=== PATIENT | male | born 2005 | race Two or more races ===

== ENCOUNTER 2024-01-25 23:49 | Emergency (ER) | payer MEDICAID, SELFPAY ==
[2024-01-25 23:51] VITALS: BMI 30.4
[2024-01-26 01:48] VITALS: BP 143/94; PULSE 120; RESP 18; TEMP 38.8; O2SAT 97
--- NOTE | 2024-01-26 02:01 | PD.EDRME ---
Rapid Medical Screening Exam [facility] Arrival date/time: 01/25/24 23:49 18M with history of frequent skin infections/abscesses presents to ED with several days of L elbow skin pain and fevers/chills. Patient denies drug use. Chief Complaint: Skin/Abscess/Foreign Body Vital signs: Vital Signs Temperature 101.8 F H 01/26/24 01:48 Pulse Rate 120 H 01/26/24 01:48 Respiratory Rate 18 01/26/24 01:48 Blood Pressure 143/94 H 01/26/24 01:48 Pulse Oximetry (%) 97 01/26/24 01:48 Oxygen Delivery Method Room Air 01/26/24 01:48
[2024-01-26 02:22] LABS: Lactate (Lactic Acid) 1.5 mMol/L (0.4-2.0)
[2024-01-26 02:28] LABS: Basophils % (Auto) 0 % (0-2.5); Eosinophils % (Auto) 0 % (0-10); Hemoglobin 15.7 g/dL (13.5-16.0); Immature Granulocytes % (Auto) 0 % (0-0); Immature Granulocytes Auto 0.04 Thou/mm3 (0.00-0.00); Lymphocytes % (Auto) 14 % (10-50); Mean Corpuscular HGB Conc 34.9 g/dl (31.0-37.0); Mean Corpuscular Hemoglobin 30.4 pg (25.0-35.0); Mean Corpuscular Volume 87 fL (80-100); Monocytes # (Auto) 1.6 Thou/mm3 (0.0-0.8); Monocytes % (Auto) 11 % (0-12); Neutrophils # (Auto) 11.1 Thou/mm3 (1.8-7.7); Neutrophils % (Auto) 75 % (37-80); Nucleated Red Blood Cell % 0 /100 WBC (0); Platelet Count 243 Thou/mm3 (140-440); Red Blood Count 5.16 Miln/mm3 (4.50-5.90); White Blood Count 14.8 Thou/mm3 (4.5-11.0)
[2024-01-26 02:42] VITALS: TEMP 38.8
[2024-01-26] MEDS: ACETAMINOPHEN 500 MG TABLET 1000 MG PO (02:42)
[2024-01-26 02:49] LABS: Alanine Aminotransferase 35 U/L (10-49); Albumin, Serum 5.3 gm/dL (3.5-5.0); Albumin/Globulin Ratio 1.9 (1.2-2.2); Alkaline Phosphatase 87 U/L (46-116); Anion Gap 7 (7-16); Aspartate Amino Transferase 13 U/L (0-34); BUN/Creatinine Ratio 11 Ratio (12-20); Bilirubin,Total 0.7 mg/dL (0.3-1.2); Blood Urea Nitrogen 10 mg/dL (9-23); Calcium 10.3 mg/dL (8.3-10.6); Calcium (Corrected) 10.3 mg/dL (8.5-10.1); Carbon Dioxide 29.4 mMol/L (20.0-31.0); Chloride 103 mMol/L (98-107); Creatinine (Component) 0.9 mg/dL (0.6-1.3); Estimated Creatinine Clearance 144.4 mL/min (>60); Globulin 2.8 gm/dL (2.3-3.5); Glucose 112 mg/dL (74-106); Osmolality,Calculated 277 (275-295); Potassium 3.7 mMol/L (3.4-5.1); Sodium 139 mMol/L (136-145); Total Protein 8.1 gm/dL (5.7-8.2); eGFR > 60 See Note
[2024-01-26 02:52] LABS: Procalcitonin 0.04 ng/ml (0.0-0.49)
[2024-01-26 05:00] VITALS: BP 125/83; PULSE 90; RESP 18; TEMP 37.1; O2SAT 97
--- NOTE | 2024-01-26 06:29 | PD.EDSKIN ---
ED Skin Abcess FB-RME/HPI General Chief complaint: Skin/Abscess/Foreign Body Stated complaint: PIMPLE, REDNESS TO ELBOW, ARM IS TINGLING Time Seen by Provider: 01/26/24 06:09 Source: patient Arrival date/time: 01/25/24 23:49 18-year-old male with past medical history of previous skin infections and abscess presents emergency department complaining of left elbow lesion that is draining with pain and fever. Patient reports similar episode and popped abscess on his own and resolved. Patient denies any IV drug use. Patient denies any history of diabetes. Mode of arrival: ambulatory Limitations: no limitations RME / HPI RME / HPI narrative: 01/25/24 23:49 18M with history of frequent skin infections/abscesses presents to ED with several days of L elbow skin pain and fevers/chills. Patient denies drug use. Related Data Previous Rx's ?Medication ?Instructions ?Recorded acetaminophen 500 mg tablet 1,000 mg (2 x 500 mg) PO TID PRN 04/17/21 (Tylenol Extra Strength) fever or pain #30 tabs albuterol sulfate 90 mcg/actuation 1 puff inhalation Q6H PRN 04/17/21 aerosol inhaler (Ventolin HFA) shortness of breath or wheezing #6.7 grams clindamycin HCl 150 mg capsule 450 mg (3 x 150 mg) PO TID 7 days 01/26/24 #63 caps Allergies Allergy/AdvReac Type Severity Reaction Status Date / Time cashew nut Allergy Severe Difficulty Verified 01/25/24 23:50 Breathing walnut Allergy Severe Difficulty Verified 01/25/24 23:50 Breathing Review of Systems Review of Systems Systems Reviewed: All systems reviewed, normal except as documented Constitutional Constitutional: Reports system reviewed and no additional complaints, except as documented, Denies body ache(s), Denies chills and Reports fever(s) Eyes Eyes: Reports system reviewed and no additional complaints, except as documented and Denies change in vision ENT Ears, Nose, Mouth, and Throat: Reports system reviewed and no additional complaints, except as documented, Denies disequilibrium, Denies dizziness, Denies sore throat and Denies vertigo Cardiovascular Cardiovascular: Reports system reviewed and no additional complaints, except as documented, Denies chest pain and Denies dyspnea Respiratory Respiratory: Reports system reviewed and no additional complaints, except as documented, Denies chest congestion, Denies cough and Denies dyspnea Gastrointestinal Gastrointestinal: Reports system reviewed and no additional complaints, except as documented, Denies abdominal pain, Denies nausea and Denies vomiting Musculoskeletal Musculoskeletal: Reports system reviewed and no additional complaints, except as documented, Denies abnormal gait and Denies arthralgias Integumentary/Breasts Skin/Breast: Reports system reviewed and no additional complaints, except as documented, Reports erythema, Reports furuncle, Reports lesions, Denies rash, Reports skin swelling and Denies wounds Neurologic Neurologic: Reports system reviewed and no additional complaints, except as documented, Denies abnormal gait, Denies disequilibrium, Denies dizziness and Denies vertigo Past Medical History Past Medical History CARDIAC: Negative Congestive Heart Failure RESPIRATORY: Positive Asthma; Negative Chronic Obstructive Pulmonary Disease (COPD) GASTROINTESTINAL: Positive Gastrointestinal Disorders GENITOURINARY: Negative Renal Disease ENDOCRINE: Negative Diabetes Mellitus Type 1 or Diabetes Mellitus Type 2 Social History SMOKING STATUS: Never smoker ED Exam General Limitations: Present no limitations General appearance: Present alert and in no apparent distress Head Head exam: Present atraumatic Eye Eye exam: Present normal appearance, PERRL and EOMI ENT ENT exam: Present normal exam, normal oropharynx and mucous membranes moist Neck Neck exam: Present normal inspection, full ROM and trachea midline Chest Chest inspection: Present normal inspection and symmetric chest wall rise Respiratory Respiratory exam: Present normal lung sounds bilaterally Cardiovascular Cardiovascular exam: Present regular rate, normal rhythm and normal heart sounds Abdominal Exam Abdominal exam: Present soft and normal bowel sounds Extremities Exam Extremities exam: Present normal inspection and full ROM Expanded Upper Extremity Exam Elbow exam: Present full ROM (Left elbow), swelling (Mild edema) and erythema Vascular exam: Normal capillary refill Back Exam Back exam: Present normal inspection and full ROM Neurological Exam Neurological exam: Present alert, oriented X3 and CN II-XII intact Psychiatric Psychiatric exam: Present normal affect and normal mood Skin Skin exam: Present warm, dry and erythema Expanded Skin Exam Type of lesion: Present abscess Distribution: Present LUE Description: Present tenderness, erythematous, swelling, discharge and indurated Body image: 1. Draining abscess below left elbow. Course Quality Measures none Orders Category Date Time Status Incision and Drainage Set Up X1 Care 01/26/24 02:01 Completed CBC Stat Lab 01/26/24 02:09 Completed CMP [Comprehensive Metabolic Panel] Stat Lab 01/26/24 02:09 Completed Lactate (Lactic Acid) Stat Lab 01/26/24 02:09 Completed Procalcitonin Stat Lab 01/26/24 02:09 Completed Acetaminophen Tab [Tylenol ES Tab] Med 01/26/24 02:00 Discontinued 1,000 mg PO X1 ONE cefTRIAXone [Rocephin] 1,000 mg Med 01/26/24 06:30 Discontinued Lidocaine 1% 20 ml [Xylocaine 1% 20 ML] 2.1 ml IM X1 cefTRIAXone [Rocephin] 1,000 mg Med 01/26/24 06:34 Discontinued Lidocaine 1% 20 ml [Xylocaine 1% 20 ML] 2.1 ml IM X1 Vital Signs Vital signs: Vital Signs Temperature 101.8 F H 01/26/24 01:48 Pulse Rate 120 H 01/26/24 01:48 Respiratory Rate 18 01/26/24 01:48 Blood Pressure 143/94 H 01/26/24 01:48 Pulse Oximetry (%) 97 01/26/24 01:48 Oxygen Delivery Method Room Air 01/26/24 01:48 97% room air within normal limits Procedures -ED Abscess I/D Site: upper extremity Side (if applicable): left Sedation/analgesia: none Technique: other (Manual manipulation) Amount of fluid expressed (mL): 10 Irrigation: Yes Packing used?: none Skin / Abscess / Foreign Body MDM Narrative MDM Narrative:: 18-year-old male with past medical history of previous skin infections and abscess presents emergency department complaining of left elbow lesion that is draining with pain. Patient reports similar episode and popped abscess on his own and resolved. Patient denies any IV drug use. Patient's left elbow full active range of motion. Skin exam draining abscess/carbuncle below left elbow with small localized area of redness and induration. Expressed approximately 10 mL of purulent and sanguinous drainage from abscess with manual manipulation. Patient tolerated well. Abscess cleansed with normal saline. Dressing applied. Patient given IM Rocephin and discharged on clindamycin advised to return for evaluation this upcoming Sunday. patient appears nontoxic and hemodynamically stable. Patient leukocytosis 14,000, normal lactate, normal procalcitonin. Instructed to follow-up with primary care provider. Instructed to return sooner to the emergency department for any worsening symptoms or as needed. Patient data External records reviewed:: [facility] previous records Clinical information provided by:: patient Social determinants that could affect healthcare access:: none Patient has the following chronic illnesses:: See chart How is presenting disease/condition affected by chronic disease/condition?: exacerbated by Evaluation data The following diagnostics were reviewed and interpreted by me:: lab results Lab and/or radiology exams considered but not ordered:: Ordered Interpretation Summary: Interpreted by me Medications / Prescriptions Medications or Prescriptions considered but not ordered:: Ordered Medication administrations:: Medication Administration History Discontinued Medications Acetaminophen (Acetaminophen 500 Mg Tablet) 1,000 mg PO X1 ONE Stop: 01/26/24 02:01 Last Admin: 01/26/24 02:42 Dose: 1,000 mg Documented By: AYDEN Ceftriaxone Sodium 1,000 mg/ (Lidocaine HCl 2.1 ml) 0 mg IM X1 ONE Stop: 01/26/24 06:31 Last Admin: 01/26/24 06:52 Dose: Not Given Documented By: AYDEN Non-Admin Reason: Discontinued Ceftriaxone Sodium 1,000 mg/ (Lidocaine HCl 2.1 ml) 0 mg IM X1 ONE Stop: 01/26/24 06:35 Last Admin: 01/26/24 06:55 Dose: 1,000 mg Documented By: SIMBA Given Consultations Consultation(s) initiated? (list below): No Diagnosis Skin/Abscess Differential Diagnosis: abscess of skin or subcutaneous tissue, cellulitis and other (Septic elbow) Most likely diagnosis given after review of the tests above:: Abscess of left arm Admission Indicated Admission indicated?: not indicated Admission Request Was there a request for admission?: No Disposition Plan Disposition Plan: Discharge Discharge Attestation Discharge Attestation: The patient and all family members were given an opportunity to ask questions and understood the discharge instructions. Discharge instructions specifically effects, indications for sooner follow up or return to the emergency department, and the expected course of current diagnosis. Patient condition: Stable Discharge Plan Plan Patient Disposition: HOME (Self Care) Disposition Comment: Stable Prescriptions/Referrals Prescriptions/Med Rec: New clindamycin HCl 150 mg capsule 450 mg PO TID 7 Days Qty: 63 0RF No Action albuterol sulfate [Ventolin HFA] 90 mcg/actuation HFA aerosol inhaler 1 puff inhalation Q6H PRN (Reason: shortness of breath or wheezing) Qty: 6.7 0RF acetaminophen [Tylenol Extra Strength] 500 mg tablet 1,000 mg PO TID PRN (Reason: fever or pain) Qty: 30 0RF Problem List Clinical Impression: Abscess of arm, left Patient/Caregiver Discharge Instructions Discharge Activity: activity as tolerated Education Materials: ED Abscess, Incision And Drainage Additional Instructions: Keep dressing to abscess as it keeps draining. Take antibiotics as prescribed. Return to the emergency department on Sunday for reevaluation. Follow-up with primary care provider upon discharge. Return to emergency department sooner for any worsening symptoms or as needed. Print Language: Maori Stand Alone Forms: Lily Award Info., Patient Portal Info Letter Attestation Attestation The patient was seen by the midlevel practitioner. I, the co-signing physician, was present during the entire ER visit. While I did not physically examine the patient, I was available for consultation as needed.
[2024-01-26] MEDS: cefTRIAXone 1,000 MG, LIDOCAINE 1% 20 ML 2.1 ML IM (06:55)
== END 2024-01-26 07:15 | disposition home or self-care (01) ==
PROVIDERS: Physician Assistant; Emergency Provider Emergency Medicine; PCP Family Medicine
DX: L02.414 Cutaneous abscess of left upper limb (principal)
CPT/HCPCS: 10060; 36415; 80053; 83605; 84145; 85025; 96372; 99283; J0696; J3490; A9270

== ENCOUNTER 2024-01-28 18:50 | Emergency (ER) | payer MEDICAID, SELFPAY ==
[2024-01-28 18:50] VITALS: BMI 29.3
[2024-01-28 19:30] VITALS: BP 122/82; PULSE 97; RESP 18; TEMP 37.2; O2SAT 100
--- NOTE | 2024-01-28 19:32 | PD.EDSKIN ---
ED Skin Abcess FB-RME/HPI General Chief complaint: Skin/Abscess/Foreign Body Stated complaint: RECHECK ON ABSCESS Time Seen by Provider: 01/28/24 19:22 Source: patient Arrival date/time: 01/28/24 18:50 18-year-old male presents emergency department for reevaluation of left elbow abscess. Patient denies any fever, chills, nausea vomiting, cough, shortness of breath, or any other associated symptoms. Mode of arrival: ambulatory Limitations: no limitations Related Data Previous Rx's ?Medication ?Instructions ?Recorded acetaminophen 500 mg tablet 1,000 mg (2 x 500 mg) PO TID PRN 04/17/21 (Tylenol Extra Strength) fever or pain #30 tabs albuterol sulfate 90 mcg/actuation 1 puff inhalation Q6H PRN 04/17/21 aerosol inhaler (Ventolin HFA) shortness of breath or wheezing #6.7 grams clindamycin HCl 150 mg capsule 450 mg (3 x 150 mg) PO TID 7 days 01/26/24 #63 caps Allergies Allergy/AdvReac Type Severity Reaction Status Date / Time cashew nut Allergy Severe Difficulty Verified 01/28/24 18:52 Breathing walnut Allergy Severe Difficulty Verified 01/28/24 18:52 Breathing Review of Systems Review of Systems Systems Reviewed: All systems reviewed, normal except as documented Constitutional Constitutional: Reports system reviewed and no additional complaints, except as documented, Denies body ache(s), Denies chills and Denies fever(s) Eyes Eyes: Reports system reviewed and no additional complaints, except as documented and Denies change in vision ENT Ears, Nose, Mouth, and Throat: Reports system reviewed and no additional complaints, except as documented, Denies disequilibrium, Denies dizziness, Denies sore throat and Denies vertigo Cardiovascular Cardiovascular: Reports system reviewed and no additional complaints, except as documented, Denies chest pain and Denies dyspnea Respiratory Respiratory: Reports system reviewed and no additional complaints, except as documented, Denies chest congestion, Denies cough and Denies dyspnea Gastrointestinal Gastrointestinal: Reports system reviewed and no additional complaints, except as documented, Denies abdominal pain, Denies nausea and Denies vomiting Musculoskeletal Musculoskeletal: Reports system reviewed and no additional complaints, except as documented, Denies abnormal gait and Denies arthralgias Integumentary/Breasts Skin/Breast: Reports system reviewed and no additional complaints, except as documented, Reports erythema, Reports lesions (Left elbow abscess), Denies rash and Denies wounds Neurologic Neurologic: Reports system reviewed and no additional complaints, except as documented, Denies abnormal gait, Denies disequilibrium, Denies dizziness and Denies vertigo Past Medical History Past Medical History CARDIAC: Negative Congestive Heart Failure RESPIRATORY: Positive Asthma; Negative Chronic Obstructive Pulmonary Disease (COPD) GASTROINTESTINAL: Positive Gastrointestinal Disorders GENITOURINARY: Negative Renal Disease ENDOCRINE: Negative Diabetes Mellitus Type 1 or Diabetes Mellitus Type 2 Social History SMOKING STATUS: Never smoker ED Exam General Limitations: Present no limitations General appearance: Present alert and in no apparent distress Head Head exam: Present atraumatic Eye Eye exam: Present normal appearance, PERRL and EOMI ENT ENT exam: Present normal exam, normal oropharynx and mucous membranes moist Neck Neck exam: Present normal inspection, full ROM and trachea midline Chest Chest inspection: Present normal inspection and symmetric chest wall rise Respiratory Respiratory exam: Present normal lung sounds bilaterally Cardiovascular Cardiovascular exam: Present regular rate, normal rhythm and normal heart sounds Abdominal Exam Abdominal exam: Present soft and normal bowel sounds Extremities Exam Extremities exam: Present normal inspection and full ROM Expanded Upper Extremity Exam Elbow exam: Present full ROM (Left elbow), swelling (Scant edema) and erythema (Left elbow); Absent tenderness (Left elbow) Vascular exam: Normal capillary refill Back Exam Back exam: Present normal inspection and full ROM Neurological Exam Neurological exam: Present alert, oriented X3 and CN II-XII intact Psychiatric Psychiatric exam: Present normal affect and normal mood Skin Skin exam: Present warm, dry, intact and normal color Course Quality Measures none Orders Category Date Time Status cefTRIAXone [Rocephin] 1,000 mg Med 01/28/24 19:37 Discontinued Lidocaine 1% 20 ml [Xylocaine 1% 20 ML] 2.1 ml IM X1 Vital Signs Vital signs: Vital Signs Temperature 99.0 F 01/28/24 19:30 Pulse Rate 97 01/28/24 19:30 Respiratory Rate 18 01/28/24 19:30 Blood Pressure 122/82 01/28/24 19:30 Pulse Oximetry (%) 100 01/28/24 19:30 Oxygen Delivery Method Room Air 01/28/24 19:30 100% room air within normal limits. Skin / Abscess / Foreign Body MDM Narrative MDM Narrative:: 18-year-old male presents emergency department for reevaluation of left elbow abscess. Patient denies any fever, chills, nausea vomiting, cough, shortness of breath, or any other associated symptoms. Patient appears nontoxic and hemodynamically stable. on exam abscess to left elbow decreased significantly in size and scant amount of drainage observed. Patient's left elbow full active range of motion with no pain on movement. On palpation no induration or obvious pocket of infection or abscess. Patient reports symptoms significantly improved. Patient has only taken 2 days of antibiotic clindamycin. Patient given another shot of IM Rocephin and instructed to complete antibiotic treatment and have follow-up with primary care provider in 2 days. Instructed to return to the emergency department immediately for any signs of worsening infection or as needed. Patient data External records reviewed:: [facility] previous records Clinical information provided by:: patient Social determinants that could affect healthcare access:: none Patient has the following chronic illnesses:: n/a How is presenting disease/condition affected by chronic disease/condition?: uneffected by Evaluation data The following diagnostics were reviewed and interpreted by me:: other (specify) (N/A) Lab and/or radiology exams considered but not ordered:: N/A Interpretation Summary: N/A Medications / Prescriptions Medications or Prescriptions considered but not ordered:: Ordered Medication administrations:: Medication Administration History Discontinued Medications Ceftriaxone Sodium 1,000 mg/ (Lidocaine HCl 2.1 ml) 0 mg IM X1 ONE Stop: 01/28/24 19:38 Last Admin: 01/28/24 19:53 Dose: 1,000 mg Documented By: Given Consultations Consultation(s) initiated? (list below): No Diagnosis Skin/Abscess Differential Diagnosis: abscess of skin or subcutaneous tissue and cellulitis Most likely diagnosis given after review of the tests above:: Cellulitis Abscess of skin or subcutaneous to Admission Indicated Admission indicated?: not indicated Admission Request Was there a request for admission?: No Disposition Plan Disposition Plan: Discharge Discharge Attestation Discharge Attestation: The patient and all family members were given an opportunity to ask questions and understood the discharge instructions. Discharge instructions specifically effects, indications for sooner follow up or return to the emergency department, and the expected course of current diagnosis. Patient condition: Stable Discharge Plan Plan Patient Disposition: HOME (Self Care) Disposition Comment: Stable Prescriptions/Referrals Prescriptions/Med Rec: No Action albuterol sulfate [Ventolin HFA] 90 mcg/actuation HFA aerosol inhaler 1 puff inhalation Q6H PRN (Reason: shortness of breath or wheezing) Qty: 6.7 0RF acetaminophen [Tylenol Extra Strength] 500 mg tablet 1,000 mg PO TID PRN (Reason: fever or pain) Qty: 30 0RF clindamycin HCl 150 mg capsule 450 mg PO TID 7 Days Qty: 63 0RF Problem List Clinical Impression: Cellulitis, Abscess of skin or subcutaneous tissue Patient/Caregiver Discharge Instructions Discharge Activity: activity as tolerated Education Materials: ED Abscess Antibiotic ... Additional Instructions: Take medication as prescribed. Continue antibiotic as prescribed until completed. Follow-up with primary care provider in 24 to 48 hours. Return to emergency department for any worsening signs of infection or as needed. Print Language: Irish Stand Alone Forms: Lily Award Info., Patient Portal Info Letter Attestation Attestation The patient was seen by the midlevel practitioner. I, the co-signing physician, was present during the entire ER visit. While I did not physically examine the patient, I was available for consultation as needed.
[2024-01-28] MEDS: cefTRIAXone 1,000 MG, LIDOCAINE 1% 20 ML 2.1 ML IM (19:53)
== END 2024-01-28 20:11 | disposition home or self-care (01) ==
LOC: SERX 19:45
PROVIDERS: Emergency Provider Emergency Medicine; PCP Family Medicine
DX: L02.414 Cutaneous abscess of left upper limb (principal); L03.114 Cellulitis of left upper limb
CPT/HCPCS: 96372; 99283; J0696; J3490

== ENCOUNTER 2024-04-13 14:33 | Emergency (ER) | payer MEDICAID, SELFPAY ==
[2024-04-13 14:34] VITALS: BMI 30.4
[2024-04-13 14:59] VITALS: BP 131/80; PULSE 106; RESP 18; TEMP 37.2; O2SAT 95
--- NOTE | 2024-04-13 15:18 | PD.EDEAR ---
ED Ear RME/HPI General Chief complaint: Ear Stated complaint: Right ear pain Time Seen by Provider: 04/13/24 14:37 Arrival date/time: 04/13/24 14:33 This is a 18-year-old male that comes in with complaints of right ear pain. Patient had issues with his right ear for a long time now and has had surgery on that ear. Patient states he has been having pain for the past 3 days and his ear also feels plugged. Patient states he is having a hard time hearing from it. Patient has an appointment this week with primary provider. He states he does get a request to see the specialist again. Related Data Previous Rx's ?Medication ?Instructions ?Recorded acetaminophen 500 mg tablet 1,000 mg (2 x 500 mg) PO TID PRN 04/17/21 (Tylenol Extra Strength) fever or pain #30 tabs albuterol sulfate 90 mcg/actuation 1 puff inhalation Q6H PRN 04/17/21 aerosol inhaler (Ventolin HFA) shortness of breath or wheezing #6.7 grams amoxicillin 875 mg-potassium 1 tab PO Q12H #14 tabs 04/13/24 clavulanate 125 mg tablet ibuprofen 800 mg tablet 800 mg PO Q6H PRN pain #14 tabs 04/13/24 Allergies Allergy/AdvReac Type Severity Reaction Status Date / Time cashew nut Allergy Severe Difficulty Verified 01/28/24 18:52 Breathing walnut Allergy Severe Difficulty Verified 01/28/24 18:52 Breathing Review of Systems Review of Systems Systems Reviewed: All systems reviewed, normal except as documented Past Medical History Past Medical History CARDIAC: Negative Congestive Heart Failure RESPIRATORY: Positive Asthma; Negative Chronic Obstructive Pulmonary Disease (COPD) GASTROINTESTINAL: Positive Gastrointestinal Disorders GENITOURINARY: Negative Renal Disease ENDOCRINE: Negative Diabetes Mellitus Type 1 or Diabetes Mellitus Type 2 Social History SMOKING STATUS: Never smoker Past Medical History Comments PMH COMMENT: denies ED Exam General General appearance: Present alert and in no apparent distress Head Head exam: Present atraumatic Eye Eye exam: Present normal appearance, PERRL and EOMI ENT ENT exam: Present normal oropharynx, mucous membranes moist and other (right tm erythemic ) Neck Neck exam: Present normal inspection, full ROM and trachea midline Chest Chest inspection: Present normal inspection and symmetric chest wall rise Respiratory Respiratory exam: Present normal lung sounds bilaterally Cardiovascular Cardiovascular exam: Present regular rate, normal rhythm and normal heart sounds Abdominal Exam Abdominal exam: Present soft and normal bowel sounds Extremities Exam Extremities exam: Present normal inspection and full ROM Back Exam Back exam: Present normal inspection and full ROM Neurological Exam Neurological exam: Present alert, oriented X3 and CN II-XII intact Psychiatric Psychiatric exam: Present normal affect and normal mood Skin Skin exam: Present warm, dry, intact and normal color Course Quality Measures none Orders Category Date Time Status Ibuprofen Tab [Motrin Tab] Med 04/13/24 15:17 Discontinued 800 mg PO X1 ONE cefTRIAXone [Rocephin] 1,000 mg Med 04/13/24 15:17 Discontinued Lidocaine 1% 20 ml [Xylocaine 1% 20 ML] 2.1 ml IM X1 Vital Signs Vital signs: Vital Signs Temperature 99 F 04/13/24 14:59 Pulse Rate 106 H 04/13/24 14:59 Respiratory Rate 18 04/13/24 14:59 Blood Pressure 131/80 H 04/13/24 14:59 Pulse Oximetry (%) 95 04/13/24 14:59 Oxygen Delivery Method Room Air 04/13/24 14:59 Ear MDM Narrative MDM Narrative:: Pt tx for ottis media. Pt given rocephin and ibuprofen Patient data External records reviewed:: [facility] previous records Clinical information provided by:: patient Social determinants that could affect healthcare access:: none Patient has the following chronic illnesses:: none How is presenting disease/condition affected by chronic disease/condition?: no chronic disease Evaluation data The following diagnostics were reviewed and interpreted by me:: other (specify) (none ) Lab and/or radiology exams considered but not ordered:: none Interpretation Summary: see note Medications / Prescriptions Medications or Prescriptions considered but not ordered:: none Medication administrations:: Medication Administration History Discontinued Medications Ceftriaxone Sodium 1,000 mg/ (Lidocaine HCl 2.1 ml) 0 mg IM X1 ONE Stop: 04/13/24 15:18 Last Admin: 04/13/24 16:20 Dose: 1,000 mg Documented By: Ibuprofen (Ibuprofen Tab 400 Mg Tablet) 800 mg PO X1 ONE Stop: 04/13/24 15:18 Last Admin: 04/13/24 16:18 Dose: 800 mg Documented By: see mar Consultations Consultation(s) initiated? (list below): No Diagnosis Most likely diagnosis given after review of the tests above:: ottits media Admission Indicated Admission indicated?: not indicated Admission Request Was there a request for admission?: No Disposition Plan Disposition Plan: Discharge Discharge Attestation Discharge Attestation: The patient and all family members were given an opportunity to ask questions and understood the discharge instructions. Discharge instructions specifically effects, indications for sooner follow up or return to the emergency department, and the expected course of current diagnosis. Patient condition: Stable Discharge Plan Plan Patient Disposition: HOME (Self Care) Patient condition on transfer: Stable Prescriptions/Referrals Prescriptions/Med Rec: New ibuprofen 800 mg tablet 800 mg PO Q6H PRN (Reason: pain) Qty: 14 0RF amoxicillin-pot clavulanate 875-125 mg tablet 1 tab PO Q12H Qty: 14 0RF No Action albuterol sulfate [Ventolin HFA] 90 mcg/actuation HFA aerosol inhaler 1 puff inhalation Q6H PRN (Reason: shortness of breath or wheezing) Qty: 6.7 0RF acetaminophen [Tylenol Extra Strength] 500 mg tablet 1,000 mg PO TID PRN (Reason: fever or pain) Qty: 30 0RF Problem List Clinical Impression: Otitis media Patient/Caregiver Discharge Instructions Discharge Activity: activity as tolerated Education Materials: ED Otitis Media Antibiotic ... Additional Instructions: Please keep scheduled appointment with primary provider. Request to be sent back to your specialist if continued issues. Come back to the emergency room if symptoms change or worsen. Follow-up with primary provider. Print Language: Indian Stand Alone Forms: Lily Award Info., Patient Portal Info Letter TIMOTHY/FRANCISCO Supervising Physician TIMOTHY/FRANCISCO Supervising Physician: [email or web address]
[2024-04-13] MEDS: IBUPROFEN TAB 400 MG TABLET 800 MG PO (16:18)
[2024-04-13] MEDS: cefTRIAXone 1,000 MG, LIDOCAINE 1% 20 ML 2.1 ML IM (16:20)
== END 2024-04-13 16:30 | disposition home or self-care (01) ==
LOC: SERX 15:51
PROVIDERS: Emergency Provider Emergency Medicine
DX: H66.91 Otitis media, unspecified, right ear (principal)
CPT/HCPCS: 96372; 99283; J0696; J3490; A9270

== ENCOUNTER 2024-12-05 22:08 | Emergency (ER) | payer MEDICAID, SELFPAY ==
[2024-12-05 22:09] VITALS: BMI 28.8
--- NOTE | 2024-12-05 22:11 | PD.EDALLER ---
ED Allergic Reaction RME/HPI General Chief complaint: General Adult/Misc Complain Stated complaint: THINK HIS THROAT IS CLOSING Time Seen by Provider: 12/05/24 22:11 Arrival date/time: 12/05/24 22:08 RME / HPI RME / HPI narrative: See [facility] for Dr. Gonzalez's HPI documentation. Related Data Previous Rx's ?Medication ?Instructions ?Recorded acetaminophen 500 mg tablet 1,000 mg (2 x 500 mg) PO TID PRN 04/17/21 (Tylenol Extra Strength) fever or pain #30 tabs albuterol sulfate 90 mcg/actuation 1 puff inhalation Q6H PRN 04/17/21 aerosol inhaler (Ventolin HFA) shortness of breath or wheezing #6.7 grams amoxicillin 875 mg-potassium 1 tab PO Q12H #14 tabs 04/13/24 clavulanate 125 mg tablet ibuprofen 800 mg tablet 800 mg PO Q6H PRN pain #14 tabs 04/13/24 Allergies Allergy/AdvReac Type Severity Reaction Status Date / Time cashew nut Allergy Severe Difficulty Verified 12/05/24 22:11 Breathing walnut Allergy Severe Difficulty Verified 12/05/24 22:11 Breathing Review of Systems Review of Systems Systems Reviewed: All systems reviewed, normal except as documented Past Medical History Past Medical History CARDIAC: Negative Congestive Heart Failure RESPIRATORY: Positive Asthma; Negative Chronic Obstructive Pulmonary Disease (COPD) GASTROINTESTINAL: Positive Gastrointestinal Disorders GENITOURINARY: Negative Renal Disease ENDOCRINE: Negative Diabetes Mellitus Type 1 or Diabetes Mellitus Type 2 Social History SMOKING STATUS: Never smoker ED Exam Narrative Physical exam: See [facility] for Dr. Gonzalez's physical exam documentation. Course Quality Measures none Orders Category Date Time Status XR chest 1V portable Stat Exams 12/05/24 22:19 Completed XR soft tissue neck Stat Exams 12/05/24 22:18 Completed Strep A Rapid Stat Lab 12/05/24 22:32 Completed Metoprolol Tartrate [Lopressor] Med 12/05/24 23:37 Discontinued 5 mg PO X1 ONE Pantoprazole Inj [Protonix Inj] Med 12/05/24 22:18 Discontinued 40 mg IVP X1 ONE predniSONE Med 12/05/24 22:28 Discontinued 60 mg PO X1 ONE Vital Signs Vital signs: Vital Signs Temperature 98.7 F 12/05/24 22:15 Pulse Rate 123 H 12/05/24 22:15 Respiratory Rate 19 12/05/24 22:15 Blood Pressure 146/96 H 12/05/24 22:15 Pulse Oximetry (%) 97 12/05/24 22:15 Oxygen Delivery Method Room Air 12/05/24 22:15 Allergic Reaction MDM Narrative MDM Narrative:: This section includes all my notes and documentations, including HPI, PE, and ED course. Serafin Gonzalez MD HPI: 19yo male here with possible allergic reaction. Ate a protein bar 12 hours ago with tree nuts. Reports throat tightness. No rash or itching. No shortness of breath. No other complaints reported. ROS: All negative except as documented in HPI. Physical Exam: General: Alert and oriented. No acute distress when remaining still. Eyes: Conjunctivae and lids clear. ENT: No nasal congestion. Pharynx normal. Patent airway. TM normal bilaterally. No angioedema. Neck: Supple. Heart: RRR. Lungs: No respiratory distress. Good air movement. No rhonchi, wheezing, rales. Abdomen: Soft and nontender. Skin: Warm and dry. Neuro: Alert and oriented X 3. I reviewed all diagnostic test results. My interpretation of the chest x-ray is NAD. My interpretation of the soft tissue x-ray is NAD. Strep negative. At this point, diagnoses include: Allergic reaction Treatment here included: Prednisone He felt much better. Recommended outpatient management. Based on my best medical judgment, made decision no further evaluation or treatment indicated at this time. Patient understands and agrees to the discharge instructions customized and printed, see below. Discharge instructions from Dr. Gonzalez: 1. You were treated today for allergic reaction. 2. To help prevent the reaction going into your airways and your throat, take prednisone as prescribed. 3. And take Benadryl 50 mg every 6-8 hours today and tomorrow then as needed. 4. Increase oral fluid and maintain clear urine.? If dark or yellow, increase oral fluid.? This will help eliminate any allergens in your blood system. 5. Avoid nuts at all cost. 6. See your private doctor on 12/08/2024 if not completely better. Ask for a referral to see an application development project manager so you can be tested to know what to avoid in the future. 7. Seek immediate medical care with worsening, breathing difficulty, or with any concerns. Serafin Gonzalez MD Patient data External records reviewed:: [facility] previous records (Per chart review, patient was seen here on 04/13/24 for otitis media.) Clinical information provided by:: patient Social determinants that could affect healthcare access:: none Patient has the following chronic illnesses:: asthma How is presenting disease/condition affected by chronic disease/condition?: uneffected by Evaluation data The following diagnostics were reviewed and interpreted by me:: lab results and radiology exam(s) Lab and/or radiology exams considered but not ordered:: none Interpretation Summary: I reviewed all diagnostic test results. My interpretation of the chest x-ray is NAD. My interpretation of the soft tissue x-ray is NAD. Strep negative. Medications / Prescriptions Medications or Prescriptions considered but not ordered:: none Medication administrations:: Medication Administration History Discontinued Medications Metoprolol Tartrate (Metoprolol Tartrate 25 Mg Tablet) 5 mg PO X1 ONE Stop: 12/05/24 23:38 Last Admin: 12/05/24 23:49 Dose: Not Given Documented By: LOVE Non-Admin Reason: Cancelled by Provider Pantoprazole Sodium (Pantoprazole Inj 40 Mg Vial) 40 mg IVP X1 ONE Stop: 12/05/24 22:19 Last Admin: 12/05/24 22:38 Dose: Not Given Documented By: NITHYA Non-Admin Reason: Discontinued Prednisone (Prednisone 20 Mg Tablet) 60 mg PO X1 ONE Stop: 12/05/24 22:29 Last Admin: 12/05/24 22:52 Dose: 60 mg Documented By: NITHYA Prednisone Consultations Consultation(s) initiated? (list below): No Diagnosis Differential Diagnosis allergic reaction: anaphylaxis, allergic reaction and other (Strep throat) Most likely diagnosis given after review of the tests above:: Allergic reaction Admission Indicated Admission indicated?: not indicated Explain why admission is indicated or not indicated:: With significant improvement and no condition needing emergent intervention, there was no indication for admission. Admission Request Was there a request for admission?: No Disposition Plan Disposition Plan: Discharge Discharge Attestation Discharge Attestation: The patient and all family members were given an opportunity to ask questions and understood the discharge instructions. Discharge instructions specifically effects, indications for sooner follow up or return to the emergency department, and the expected course of current diagnosis. Patient condition: Stable Discharge Plan Plan Patient Disposition: HOME (Self Care) Prescriptions/Referrals Prescriptions/Med Rec: No Action albuterol sulfate [Ventolin HFA] 90 mcg/actuation HFA aerosol inhaler 1 puff inhalation Q6H PRN (Reason: shortness of breath or wheezing) Qty: 6.7 0RF acetaminophen [Tylenol Extra Strength] 500 mg tablet 1,000 mg PO TID PRN (Reason: fever or pain) Qty: 30 0RF ibuprofen 800 mg tablet 800 mg PO Q6H PRN (Reason: pain) Qty: 14 0RF amoxicillin-pot clavulanate 875-125 mg tablet 1 tab PO Q12H Qty: 14 0RF Referrals: Yoshi Rodriguez MD [Primary Care Provider, Family Practice] - In 1 week Problem List Clinical Impression: Allergic reaction Patient/Caregiver Discharge Instructions Discharge Activity: activity as tolerated Education Materials: ED Food Allergy Additional Instructions: Discharge instructions from Dr. Gonzalez: 1. You were treated today for allergic reaction. 2. To help prevent the reaction going into your airways and your throat, take prednisone as prescribed. 3. And take Benadryl 50 mg every 6-8 hours today and tomorrow then as needed. 4. Increase oral fluid and maintain clear urine.? If dark or yellow, increase oral fluid.? This will help eliminate any allergens in your blood system. 5. Avoid nuts at all cost. 6. See your private doctor on 12/08/2024 if not completely better. Ask for a referral to see an application development project manager so you can be tested to know what to avoid in the future. 7. Seek immediate medical care with worsening, breathing difficulty, or with any concerns. Print Language: Slovak Stand Alone Forms: Lily Award Info., Patient Portal Info Letter
[2024-12-05 22:15] VITALS: BP 146/96; PULSE 123; RESP 19; TEMP 37.1; O2SAT 97
--- NOTE | 2024-12-05 22:18 | XR_ITS ---
Examination: AP lateral soft tissue neck 2 views Technique: AP lateral soft tissue neck 2 views Date and time: December 05, 2024 1030 hrs. Indications: Sore throat today Findings: Normal epiglottis. No prevertebral soft tissue prominence No distention hypopharynx. Satisfactory alignment cervical vertebral bodies Impression: Normal appendix No soft tissue neck mass noted
--- NOTE | 2024-12-05 22:19 | XR_ITS ---
Examination: PA chest single view Technique: Upright PA chest single view Date and time: December 05, 2024 1036 hrs. Indications: Shortness of breath today. Findings: Normal heart size. No lobar pneumonia or pulmonary edema. The osseous structures are intact Impression: No active disease.
[2024-12-05 22:59] LABS: Strep A Rapid Negative (Negative)
[2024-12-05 23:35] VITALS: BP 136/93; PULSE 90; RESP 19; TEMP 37
== END 2024-12-05 23:50 | disposition home or self-care (01) ==
PROVIDERS: Emergency Provider Emergency Medicine; PCP Family Medicine
DX: F39 Unspecified mood [affective] disorder (principal)
CPT/HCPCS: 70360; 71045; 87651; 99283; J7512